=== PATIENT | male | born 1985 | race Caucasian/White ===

== ENCOUNTER 2025-04-30 22:38 | Emergency (ER) | payer OTHER ==
[2025-04-30] MEDS ORDERED: CEPHALEXIN 250 MG CAP ONE (23:05)
--- NOTE | 2025-04-30 23:54 | EDPHYS ---
Physician Documentation [facility] Name: Bucky Peterson Age: 39 yrs Sex: Male : 1985 Arrival Date: 04/30/2025 Time: 22:38 Bed 12 Private MD: ED Physician Theo Johnston HPI: 04/30 23:54 This 39 yrs old Male presents to ER via Ambulatory with complaints of Leg Swelling - kb right. 23:54 Patient is a 39-year-old male who presents for redness, swelling and pain to right kb lower leg that started 2 days ago. States pain started after he stomped hard to break a pipe. States she has had cellulitis in the past and this feels similar. Denies fever.. Historical: - Allergies: 23:02 ENDAL-HD; br2 - PMHx: 23:02 None; br2 - PSHx: 23:02 None; br2 - Immunization history:: Adult Immunizations not up to date. - Infectious Disease History:: Denies. - Social history:: Smoking status: Patient reports the use of cigarette tobacco products, smokes one-half pack cigarettes per day, Patient uses alcohol, occasionally. street drugs, Methamphetamine (Meth) K2. ROS: 23:53 Constitutional: As per HPI kb Exam: 23:53 Constitutional: This is a well developed, well nourished patient who is awake, alert, kb and in no acute distress. Head/Face: Normocephalic, atraumatic. ENT: Moist Mucous membranes Cardiovascular: Regular rate Respiratory: Respirations even and unlabored. No increased work of breathing. Talking in full sentences MS/ Extremity: Pulses equal, no cyanosis. Neurovascular intact. Full, normal range of motion. Neuro: Awake and alert, GCS 15, oriented to person, place, time, and situation. 23:53 Skin: cellulitis, that is mild, on the right shultz, Vital Signs: 22:58 BP 148 / 98; Pulse 106; Resp 18; Temp 97.3; Pulse Ox 100% ; Weight 77.11 kg; Height 6 br2 ft. 0 in. ; Pain 11/10; 05/01 00:05 BP 140 / 80; Pulse 98; Resp 18; Pulse Ox 100% ; br2 04/30 22:58 Body Mass Index 23.06 (77.11 kg, 182.88 cm) br2 04/30 22:58 Pain Scale: Adult br2 MDM: 04/30 22:44 Medical Screening Exam initiated kb 23:54 Differential diagnosis: abscess, allergic reaction, cellulitis, insect bite. Data kb reviewed: vital signs, nurses notes. Counseling: I had a detailed discussion with the patient and/or guardian regarding the historical points, exam findings, and any diagnostic results supporting the discharge/admit diagnosis, radiology results, the need for outpatient follow up, a family practitioner, to return to the emergency department if symptoms worsen or persist or if there are any questions or concerns that arise at home. 04/30 22:49 Order name: Tib Fib Right XRAY kb Administered Medications: 23:19 Drug: Cephalexin PO 500 mg PO once Route: PO; jb4 Disposition: 05/01 22:53 Co-signature as Attending Physician, Theo Johnston MD I agree with the assessment sp4 and plan of care. I reviewed the patient's care provided by Advanced Practice Provider \T\ agree w/ the diagnosis \T\ care plan. I personally saw the pt \T\ performed a substantive portion of the visit, incldng all aspects of the (History/Exam/Medical Decision Making). Disposition Summary: 04/30/25 23:53 Discharge Ordered Notes: Location: Home kb Condition: Stable kb Diagnosis - Cellulitis of right lower limb kb Followup: kb - With: Emergency Department - When: As needed - Reason: Worsening of condition Followup: kb - With: Private Physician - When: 2 - 3 days - Reason: Recheck today's complaints, Continuance of care, Re-evaluation by your physician Discharge Instructions: - Discharge Summary Sheet kb - Cellulitis, Adult, [id number] kb Forms: - Medication Reconciliation Form kb - Antibiotic Education kb - Prescription Opioid Use kb - Patient Portal Instructions kb - Leadership Thank You Letter kb Prescriptions: - Cephalexin 500 mg Oral Capsule - take 1 capsule ORAL route every 8 hours for 10 days; 30 capsule; Refills: 0, kb Product Selection Permitted Signatures: Dispatcher [employer] Rafaela Mallory FNP-C FNP-Ckb Bryson, James RN RN jb4 Theo Johnston MD MD sp4 Paulina Nunez RN RN br2
--- NOTE | 2025-04-30 23:54 | ER ---
Nurse's Notes [facility] Name: Bucky Peterson Age: 39 yrs Sex: Male : 1985 Arrival Date: 04/30/2025 Time: 22:38 Bed 12 Private MD: Diagnosis: Cellulitis of right lower limb Presentation: 04/30 22:58 Chief complaint: Patient states: RLE PAIN, EDEMA, REDNESS FOR APPROX 2 DAYS. br2 Coronavirus screen: Client denies travel out of the [place] in the last 14 days. Ebola Screen: Patient denies exposure to infectious person. Initial Sepsis Screen: Does the patient meet any 2 criteria? No. Patient's initial sepsis screen is negative. Does the patient have a suspected source of infection? No. Patient's initial sepsis screen is negative. Risk Assessment: Do you want to hurt yourself or someone else? Patient reports no desire to harm self or others. Onset of symptoms was April 28, 2025. 22:58 Method Of Arrival: Ambulatory br2 22:58 Acuity: BRI 3 br2 Triage Assessment: 23:02 General: Appears in no apparent distress. comfortable, Behavior is calm, cooperative. br2 Pain: Complains of pain in right shultz and anterior aspect of right ankle Pain currently is 5 out of 10 on a pain scale. Historical: - Allergies: 23:02 ENDAL-HD; br2 - PMHx: 23:02 None; br2 - PSHx: 23:02 None; br2 - Immunization history:: Adult Immunizations not up to date. - Infectious Disease History:: Denies. - Social history:: Smoking status: Patient reports the use of cigarette tobacco products, smokes one-half pack cigarettes per day, Patient uses alcohol, occasionally. street drugs, Methamphetamine (Meth) K2. Assessment: 05/01 00:04 Reassessment: SEE TRIAGE ASSESSMENT. br2 Vital Signs: 04/30 22:58 BP 148 / 98; Pulse 106; Resp 18; Temp 97.3; Pulse Ox 100% ; Weight 77.11 kg; Height 6 br2 ft. 0 in. ; Pain 5/10; 05/01 00:05 BP 140 / 80; Pulse 98; Resp 18; Pulse Ox 100% ; br2 04/30 22:58 Body Mass Index 23.06 (77.11 kg, 182.88 cm) br2 04/30 22:58 Pain Scale: Adult br2 ED Course: 04/30 22:41 Patient arrived in ED. im 22:43 Rafaela Sosa F[facility]-C [facility] kb 22:43 Theo Johnston MD is Attending Physician. kb 23:02 Triage completed. br2 23:02 Arm band placed on right wrist. br2 23:48 Tib Fib Right XRAY In Process Unspecified. EDMS 05/01 00:05 No provider procedures requiring assistance completed. Patient did not have IV access br2 during this emergency room visit. Administered Medications: 04/30 23:19 Drug: Cephalexin PO 500 mg PO once Route: PO; jb4 Medication: 05/01 00:05 VIS not applicable for this client. br2 Outcome: 04/30 23:53 Discharge ordered by . kb 05/01 00:05 Discharged to home ambulatory, br2 Condition: good Discharge instructions given to patient, Instructed on discharge instructions, follow up and referral plans. Demonstrated understanding of instructions, follow-up care, medications, Prescriptions given X 1, 00:06 Patient left the ED. br2 Signatures: Dispatcher [employer] EDMS Rafaela Sosa FNP-C FNP-Mu Beckford, RN RN jb4 Jocelynn Mccain Belinda, RN RN br2
--- NOTE | 2025-05-01 01:48 | RAD REPORT ---
INDICATION: PAIN COMPARISON: No existing relevant imaging studies are available FINDINGS: Three views of the right tibia and fibula were obtained. BONES / JOINTS: No acute fracture or dislocation. SOFT TISSUES: Mild soft tissue swelling along the medial aspect of the lower leg. ADDITIONAL FINDINGS: None. IMPRESSION: Mild soft tissue swelling along the medial aspect of the lower leg without acute osseous findings. Electronically signed by: Emerson Walker DO 05/01/2025 12:50 AM CDT RP NR Due to temporary technical issues with the PACS/[employer] reporting system, reports are being alejandro d by the in-house radiologist without review as a courtesy to ensure prompt reporting the interpreting radiologist is fully responsible for the content of the report. Transcribed Date/Time: 05/01/2025 1:48 AM
[2025-05-01 05:22] VITALS: TEMP 97.3; O2SAT 100
[2025-05-01 05:24] VITALS: BP 140/80
== END 2025-05-01 00:06 | disposition home or self-care (01) ==
LOC: ER 22:38
DX: L03.115 Cellulitis of right lower limb (principal)
CPT/HCPCS: 99283